=== PATIENT | male | born 1975 | race Caucasian/White ===

== ENCOUNTER 2021-06-27 00:23 | Emergency (ER) | payer SELFPAY ==
[2021-06-27] MEDS ORDERED: OLANZapine 5 MG Tab PO STA (01:15)
== END 2021-06-27 01:35 | disposition home or self-care (01) ==
LOC: JD.ED 00:23
DX: F31.9 Bipolar disorder, unspecified (principal); E87.1 Hypo-osmolality and hyponatremia; Z72.0 Tobacco use
CPT/HCPCS: 99284; A9270